=== PATIENT | female | born 2000 | race Caucasian/White ===

== ENCOUNTER 2019-01-15 12:06 | Emergency (ER) | payer MEDICAID ==
[~2019-01-15] VITALS: Ht 162.6 cm; Wt 63.0 kg
[2019-01-15] MEDS ORDERED: IBUPROFEN 600MG TABLET PO ONE (13:00)
[2019-01-15 13:13] VITALS: BP 111/74
== END 2019-01-15 13:17 | disposition home or self-care (01) ==
LOC: ER 12:06
DX: S20.219A Contusion of unspecified front wall of thorax, initial encounter (principal); T14.8XXA Other injury of unspecified body region, initial encounter; V43.52XA Car driver injured in collision with other type car in traffic accident, initial encounter; Y93.89 Activity, other specified; Y92.488 Other paved roadways as the place of occurrence of the external cause
CPT/HCPCS: 81025; 99283